=== PATIENT | male | born 1960 | race Caucasian/White ===

== ENCOUNTER 2020-08-15 07:33 | Day surgery (SDC) | payer BC, OTHER ==
[2020-08-09 12:55] VITALS: BMI 26.0
[2020-08-15 08:06] VITALS: TEMP 98
[2020-08-15] MEDS ORDERED: LIDOCAINE HCL/PF 2% SDV 5ML VIAL ONE (08:09)
[2020-08-15] MEDS ORDERED: PROPOFOL 20 ML ONE ×3 (08:09)
[2020-08-15 09:32] LABS: ALBUMIN 4.4 g/dl (3.4-5.0); BILIRUBIN,TOTAL 1.6 mg/dl (0.2-1); CALCIUM 9.1 mg/dl (8.5-10); CREATININE 0.9 mg/dl (0.55-1.3); MAGNESIUM 1.8 mg/dL (1.8-2.4); PHOSPHOROUS 2.8 mg/dl (2.5-4.9); TOT PROT 6.8 g/dl (6.4-8.2)
[2020-08-15 09:39] LABS: HEMATOCRIT 43.5 % (35.4-49); HEMOGLOBIN 14.7 GM/dl (11.7-16.9); MCH 31.6 pg (25.7-33.7); MCHC 33.8 g/dl (32.0-35.9); MEAN CELL VOLUME 93.4 fl (80-96); MEAN PLT VOLUME 7.5 fl (7.5-11.1); PLATELET COUNT 166 K/MM3 (134-434); RBC 4.65 M/mm3 (4.00-5.60); RDW 12.4 % (11.9-15.9); WHITE BLOOD COUNT 2.8 K/mm3 (4.0-10.8)
[2020-08-15 10:01] VITALS: BP 125/72; PULSE 93
[2020-08-15 10:46] LABS: PLATELET ESTIMATE ADEQUATE
== END 2020-08-15 10:00 | disposition home or self-care (01) ==
LOC: FASU-ENDO 07:33
PROVIDERS: ATTEND Internal Medicine Gastroenterology
DX: Z53.8 Procedure and treatment not carried out for other reasons (principal)
CPT/HCPCS: 36415; 80053; 82550; 83735; 84100; 84484; 85025; 93005; 93010